=== PATIENT | male | born 1960 | race African-American/Black ===

== ENCOUNTER 2017-10-20 10:41 | Day surgery (SDC) | payer MEDICAID ==
[~2017-10-20] VITALS: Ht 172.7 cm; Wt 102.2 kg
[2017-10-20] VITALS (13 sets, daily range): BP systolic 113–147; BP diastolic 80–96
[2017-10-20] MEDS ORDERED: diphenhydrAMINE 25mg capsule PO PRN (11:10)
[2017-10-20] MEDS ORDERED: nitroGLYCERIN 0.4mg SUBLingual tab SL PRN ×2 (11:10→13:15)
[2017-10-20] MEDS ORDERED: normal saline 1000ml 1,000 ML IV SCH ×2 (11:10→13:10)
[2017-10-20] MEDS ORDERED: LORazepam 0.5 MG tablet PO PRN (11:10)
[2017-10-20] MEDS ORDERED: midazolam 2 mg/2 ml injection ONE ×2 (11:53→12:19)
[2017-10-20] MEDS ORDERED: LIDOcaine 1% 30ml preserv. free vial ONE (11:54)
[2017-10-20] MEDS ORDERED: iohexol 350 MG/ML 50ML vial IV ONE (11:54)
[2017-10-20] MEDS ORDERED: iohexol 350MG/ML 100ml bottle IV ONE (11:54)
[2017-10-20] MEDS ORDERED: fentaNYL/PF 50MCG/1 ML 2ML syringe ONE ×2 (11:54→12:19)
[2017-10-20] MEDS ORDERED: DOCUSATE (12:03)
[2017-10-20] MEDS ORDERED: ACET-1025 (12:03)
[2017-10-20] MEDS ORDERED: LISI-600 PO (12:03)
[2017-10-20] MEDS ORDERED: CHOL100046 PO (12:03)
[2017-10-20] MEDS ORDERED: TRAZ-219 PO (12:03)
[2017-10-20] MEDS ORDERED: CARV-50 PO (12:03)
[2017-10-20] MEDS ORDERED: ASPI-611 PO (12:03)
[2017-10-20] MEDS ORDERED: DICLOFENAC PO (12:03)
[2017-10-20] MEDS ORDERED: ATOR20TA PO (12:03)
[2017-10-20] MEDS ORDERED: OMEP40CA37 PO (12:03)
[2017-10-20] MEDS ORDERED: HYDROcodone/acetaminophen 5mg/325mg tablet PO PRN (13:10)
[2017-10-20] MEDS ORDERED: ondansetron/PF 4mg/2ml inj IV PRN (13:10)
[2017-10-20] MEDS ORDERED: OXAZEpam 15mg capsule PO PRN (13:15)
[2017-10-20] MEDS ORDERED: proCHLORperazine 10 MG/2 ml inj IV PRN (13:15)
[2017-10-20] MEDS ORDERED: HYDROcodone/acetaminophen 10/325mg tab PO PRN (13:15)
== END 2017-10-20 19:00 | disposition home or self-care (01) ==
LOC: SSTAY O 10:41
PROVIDERS: ATTEND Internal Medicine Cardiovascular Disease
DX: R94.39 Abnormal result of other cardiovascular function study (principal); I10 Essential (primary) hypertension; E78.5 Hyperlipidemia, unspecified; G47.33 Obstructive sleep apnea (adult) (pediatric); G89.29 Other chronic pain; F10.21 Alcohol dependence, in remission; Z79.82 Long term (current) use of aspirin; Z90.49 Acquired absence of other specified parts of digestive tract; Z79.1 Long term (current) use of non-steroidal anti-inflammatories (NSAID); Z88.5 Allergy status to narcotic agent; Z79.891 Long term (current) use of opiate analgesic; Z79.899 Other long term (current) drug therapy; Z98.890 Other specified postprocedural states
CPT/HCPCS: 93458; 99152; A6257; C1760; C1769; J1644; J2250; J3010; J3490; J7030; Q0163; Q9967; 99153; A4620